=== PATIENT | male | born 1965 | race Caucasian/White ===

== ENCOUNTER 2023-12-26 11:52 | Emergency (ER) | payer OTHER ==
[~2023-12-26] VITALS: Ht 180.3 cm; Wt 83.9 kg
[2023-12-26 12:06] VITALS: PULSE 60; RESP 18; TEMP 98.6; O2SAT 99
[2023-12-26] MEDS ORDERED: IBUPROFEN800 MG PO (12:44)
== END 2023-12-26 13:20 | disposition home or self-care (01) ==
LOC: FSED 11:58
DX: S22.42XA Multiple fractures of ribs, left side, initial encounter for closed fracture (principal); W01.0XXA Fall on same level from slipping, tripping and stumbling without subsequent striking against object, initial encounter; Y92.89 Other specified places as the place of occurrence of the external cause; I10 Essential (primary) hypertension
CPT/HCPCS: 71046; 99283